=== PATIENT | male | born 1975 | race Caucasian/White ===

== ENCOUNTER 2024-04-20 21:47 | Observation (INO) ==
--- NOTE | 2024-04-20 22:13 | Emergency Department Note ---
Impression & Plan Atypical chest pain, Abdominal pain, epigastric, Alcohol use ED Provider Note Provider: Sahil Kulkarni MD DATE OF SERVICE: 04/20/2024 CHIEF COMPLAINT: Epigastric pain and discomfort earlier HISTORY OF PRESENT ILLNESS: Patient is a 48-year-old gentleman presenting with alexandro reporting about an area of the onset of some pain and pressure in the mid upper abdomen and lower chest region while he was in the pool. Was throwing some folks in the pool and have been in for several hours in the heat and had had some grilled food as well as fair amount of alcohol this evening. [place] unwell and according to face was bit purple. She was bringing him in for evaluation when after about 25 minutes of this his symptoms resolved. Came here just to be sure nothing else was going on. Feels fine now. No nausea or vomiting at this time. No shortness of breath. No syncope. No significant trauma. Family history of heart disease in father. Patient reports prior cholecystectomy. Denies significant heartburn. PAST MEDICAL HISTORY: As noted above MEDICATIONS: None reported SOCIAL HISTORY: Smoker, , occasional alcohol PHYSICAL EXAM: GENERAL: alert and oriented in no acute distress on stretcher Head: normocephalic and atraumatic EYES: No injection, discharge or icterus. NECK: Trachea midline. ENT: Mucous membranes pink and moist. LUNGS: Airway patent. No retractions. Breath sounds clear with good air entry bilaterally. HEART: Regular rate and rhythm. No chest wall tenderness ABDOMEN: Soft and non-tender, without guarding or rebound. SKIN: Acyanotic, warm, dry, without rashes EXTREMITIES: Without swelling, tenderness or deformity NEUROLOGICAL: No focal deficits. No aphasia. No facial droop or slurred speech. Ambulatory. EK bpm normal sinus rhythm. No PVC or PAC. No acute ST segment elevation or depression with QTc of 455. CONTINUOUS CARDIAC MONITORING: was ordered and showed a heart rate of 80s-90s bpm in normal sinus rhythm 1 view chest x-ray per my interpretation: No evidence of pneumothorax or pneumonia. No free air to the diaphragm. Normal cardiac silhouette. Slight right interstitial prominence noted. No pulmonary edema appreciable. Patient's laboratory studies and imaging reviewed. Differential includes Cardiac ischemia, aortic dissection, pulmonary embolism, pneumothorax, pneumonia, pericarditis, myocarditis, esophageal rupture, GERD, cholecystitis, pancreatitis, musculoskeletal, as well as other pathologies. IMPRESSION/MEDICAL DECISION MAKING: Patient is distressed and asymptomatic now. Vitals reassuring. Prior cholecystectomy and benign abdomen exam. Doubt perforation. Doubt obstruction. Chest x-ray obtained as well as EKG and blood work sent. Given some Pepcid and Protonix as he has been drinking and had some epigastric discomfort in case this is more GI related. Lower suspicion for cardiac disease with reassuring EKG here. Troponin sent and normal. No significant leg swelling or travel history not hypoxic or tachycardic and doubt PE. Doubt dissection. Medical alcohol was sent as the patient does endorse fairly significant alcohol use. May be contributing somewhat to his discomfort earlier. Lipase was sent as well. Given the benign abdomen however do not feel we need abdominal imaging. Blood work here without significant anemia. Slight leukocytosis of 10.9 nonspecific but no other infectious symptoms reported. Normal platelet count. No evidence of acute renal dysfunction hepatitis pancreatitis or troponin elevation. Patient resting on reassessment and arousable. Alcohol level is elevated likely contributing. Shared decision making discussing risk and benefits, given the patient's concern with the severity initially earlier, we will repeat a delta second troponin to ensure no significant change although the patient is asymptomatic at this time. Repeat troponin returns 14 from 7 doubling about 2 hours. Patient still resting comfortably. Given a dose of aspirin. Discussed with patient and . Again somewhat concerning that while still normal his troponin is increased with this amount. Discussed further observation and discussed with the hospitalist patient's case. DIAGNOSIS: Atypical chest pain/epigastric pain, alcohol intoxication DISPOSITION: Evaluated by the hospitalist Patient was agreeable with this plan. Past Med/Surg History Problem List (Updated 04/21/24 @ 01:52 by Sahil Kulkarni M.D.) Alcohol use (Acute) Atypical chest pain (Acute) Abdominal pain, epigastric (Acute) Social History Smoking Status: Current every day smoker Tobacco Type: Cigarettes Feels Safe at Home: Yes Results & Data (ED) Vital Signs Vital Signs - 24 hr 04/20/24 21:51 04/20/24 22:10 04/20/24 22:10 Temperature 36.9 C Temperature Source Temporal Artery Scan Pulse Rate 98 H 89 Pulse Rate from SpO2 Sensor Respiratory Rate 18 Blood Pressure 133/85 Blood Pressure Mean 101 Pulse Oximetry 95 94 Oxygen Delivery Method Room Air Room Air Sepsis Recent Fever Within 48 Hours No Sepsis New/Unexplained Change in Mental Status N/A Sepsis Action Taken by Nursing No Action Required 04/20/24 23:00 Temperature Temperature Source Pulse Rate 84 Pulse Rate from SpO2 Sensor 83 Respiratory Rate 17 Blood Pressure 133/76 Blood Pressure Mean 95 Pulse Oximetry 95 Oxygen Delivery Method Room Air Sepsis Recent Fever Within 48 Hours Sepsis New/Unexplained Change in Mental Status Sepsis Action Taken by Nursing Laboratory Data 04/20/24 22:04 04/20/24 22:04 Lab Results 04/20/24 04/21/24 Range/Units 22:04 00:20 WBC 10.92 H (4.8-10.8) K/ul RBC 5.24 (4.70-6.10) M/uL Hgb 16.0 (14.0-18.0) g/dl Hct 46.2 (42.0-52.0) % MCV 88.2 (80.0-100.0) fL MCH 30.5 (25.0-34.0) pg MCHC 34.6 (32.0-36.0) g/dL RDW Std Deviation 41.5 (36.4-46.3) fL RDW Coeff of Karen 12.7 (11.5-14.5) % Plt Count 163 (130-400) K/uL MPV 10.0 (9.4-12.4) fL Immature Gran % (Auto) 0.5 % Neut % (Auto) 61.5 % Lymph % (Auto) 32.6 % [place] % (Auto) 3.8 % Eos % (Auto) 1.1 % Baso % (Auto) 0.5 % Neut # (Auto) 6.71 H (1.40-6.50) K/uL Lymph # (Auto) 3.56 H (1.20-3.40) K/uL [place] # (Auto) 0.42 (0.11-0.59) K/uL Eos # (Auto) 0.12 (0.00-0.50) K/uL Baso # (Auto) 0.05 (0.00-0.20) K/uL Immature Gran # (Auto) 0.06 (0.01-0.20) K/uL PT 9.8 (9.0-12.0) Seconds INR 0.9 (0.9-1.1) Sodium 140 (136-145) mmol/L Potassium 3.7 (3.5-5.1) mmol/L Chloride 106 (98-107) mmol/L Carbon Dioxide 21 (21-32) mmol/L Anion Gap 13 H (3-11) BUN 10 (6-23) mg/dl Creatinine 1.18 (0.6-1.4) mg/dl Est Cr Clr Drug Dosing 113.6 ml/min Est GFR ( Amer) 82.9 ml/min Est GFR (Non-Af Amer) 71.5 ml/min BUN/Creatinine Ratio 8.5 L (10-20) Glucose 136 H (70-99(Fasting)) mg/dl Calcium 8.5 L (8.6-10.3) mg/dl Total Bilirubin 0.5 (0.2-1.0) mg/dl AST 38 (13-39) U/L ALT 31 (7-52) U/L Alkaline Phosphatase 64 (34-104) U/L Troponin I High Sens 7.4 14.2 D (0-20) pg/ml Total Protein 6.7 (6.0-8.3) gm/dl Albumin 4.2 (3.4-5.0) gm/dl Globulin 2.5 (2.5-4.0) gm/dl Albumin/Globulin Ratio 1.7 (0.9-2) Lipase 32 (11-82) U/L Ethyl Alcohol mg/dL 241.4 H (<10.0) mg/dl Administered Medications Discontinued Medications Famotidine (Pepcid 20mg Iv Push) 20 mg in 5 mls @ 2.5 mls/min IV NOW STA Stop: 04/20/24 21:57 Last Admin: 04/20/24 22:32 Dose: 2.5 mls/min Documented By: Pantoprazole Sodium 80 mg/ (Dextrose) 120 mls @ 480 mls/hr IV ONE STA Stop: 04/20/24 22:10 Last Infusion: 04/20/24 22:53 Dose: Infused Documented By: Admin: 04/20/24 22:32 Dose: 480 mls/hr Documented By: Discharge Plan Visit Data Chief Complaint: Chest Pain Stated Complaint: CHEST PAIN ED Provider: Sahil Kulkarni Discharge Problem: Atypical chest pain, Abdominal pain, epigastric, Alcohol use Patient Disposition: Being Evaluated by Hospitalist Condition: Good Referrals Referrals: PCP,NO [Primary Care Provider] -
[2024-04-20 22:27] LABS: Basophils # (auto) 0.05 K/uL (0.00-0.20); Basophils % (auto) 0.5 %; Eosinophils # (auto) 0.12 K/uL (0.00-0.50); Eosinophils % (auto) 1.1 %; Hematocrit (blood only) 46.2 % (42.0-52.0); Immature Granulocytes # (auto) 0.06 K/uL (0.01-0.20); Immature Granulocytes % (auto) 0.5 %; Lymphocytes # (auto) 3.56 K/uL (1.20-3.40); Lymphocytes % (auto) 32.6 %; Mean Corpuscular Hemoglobin 30.5 pg (25.0-34.0); Mean Corpuscular Hgb Conc 34.6 g/dL (32.0-36.0); Mean Corpuscular Volume 88.2 fL (80.0-100.0); Monocytes # (auto) 0.42 K/uL (0.11-0.59); Monocytes % (auto) 3.8 %; Neutrophils # (auto) 6.71 K/uL (1.40-6.50); Neutrophils % (auto) 61.5 %; Platelet Count 163 K/uL (130-400); RDW Coefficient of Variation 12.7 % (11.5-14.5); RDW Standard Deviation 41.5 fL (36.4-46.3); Red Blood Count 5.24 M/uL (4.70-6.10); White Blood Count 10.92 K/ul (4.8-10.8)
[2024-04-20] MEDS: PANTOprazole 80 MG in DEXTROSE 5% 100 ML IV STA (22:32)
[2024-04-20] MEDS: FAMOTIDINE 20MG IV PUSH 20 MG/5 ML SYR IV STA (22:32)
[2024-04-20 23:23] LABS: Albumin Globulin Ratio 1.7 (0.9-2); Albumin Level 4.2 gm/dl (3.4-5.0); BUN Creatinine Ratio 8.5 (10-20); Bilirubin,Total 0.5 mg/dl (0.2-1.0); Calcium 8.5 mg/dl (8.6-10.3); Creatinine Clr Calc Pharmacy 113.6 ml/min; Est GFR (African American) 82.9 ml/min; Est GFR (Non-African American) 71.5 ml/min; Globulin 2.5 gm/dl (2.5-4.0); Potassium 3.7 mmol/L (3.5-5.1); Total Protein 6.7 gm/dl (6.0-8.3)
[2024-04-20 23:30] LABS: Troponin I High Sensitivity 7.4 pg/ml (0-20)
[2024-04-20 23:45] LABS: INR 0.9 (0.9-1.1); Prothrombin Time 9.8 Seconds (9.0-12.0)
[2024-04-21] MEDS: ASPIRIN 81 MG CHEW PO STA (02:01)
--- NOTE | 2024-04-21 02:18 | History & Physical Report ---
Date of Service April 21, 2024 Assessment & Plan (1) Atypical chest pain: Plan: 48yo male presenting after episode of chest discomfort. EKG with no acute ischemic changes. Troponin WNL, however, has doubled on repeat (7.4--> 14.2) Patient with BMI=37. He is an active smoker. His father from an [place] in November 2023. Patient does not follow routinely with a physician. He is active and independent. Denies exertional chest pain or dyspnea. -Observation to medical with telemetry -Trend troponin to peak -Check Lipid panel and HgbA1C for risk stratification -Check 2D echo -Will provide nicotine patch -Smoking cessation counseling -Patient should establish with a PCP. He lives in [place] History of Present Illness Chief Complaint: chest pain Primary Care Provider: NO PCP Antoin Cano is a 48yo male with no known past medical history presenting with episode of chest discomfort. Patient was at a family democrat this evening. He was throwing people into the pool when he developed some epigastric and upper abdominal chest discomfort. His reports that he became diaphoretic and almost cyanotic appearing. Patient does not recall the events. He had been drinking throughout the day and is intoxicated. Presently with no complaints. Reports that he no longer has chest discomfort. No shortness of breath. No additional complaints - specifically no fever, chills, abdominal pain, nausea, vomiting or diarrhea. In the ER he is afebrile, HD stable Troponin as above WNL, however, doubled on repeat from 7.4 --> 14.2 ER Course: ASA 324mg po Protonix Pepcid Allergies Allergy/AdvReac Type Severity Reaction Status Date / Time Penicillins Allergy Rash Verified 04/21/24 01:47 Home Medications Medication Instructions Recorded Confirmed Type aspirin 81 mg tablet,delayed 162 mg PO DAILY PRN Pain 04/21/24 04/21/24 History release Past Med/Surg History Problem List (Updated 04/21/24 @ 02:12 by Taylor Oropeza DO) Alcohol use (Acute) Atypical chest pain (Acute) Abdominal pain, epigastric (Acute) Medical History (Updated 04/21/24 @ 02:12 by Taylor Oropeza DO) No significant past medical history Surgical History (Updated 04/21/24 @ 02:12 by Taylor Oropeza DO) History of cholecystectomy Family History (Updated 04/21/24 @ 02:12 by Taylor Oropeza DO) Other Coronary heart disease Social History Smoking Status: Current every day smoker Tobacco Type: Cigarettes Feels Safe at Home: Yes Review of Systems Review of Systems: All systems reviewed & are unremarkable except as noted in HPI & below Physical Exam Physical Exam: General: patient resting comfortably, NAD, non-toxic in appearance, AA&O x 4 Skin: warm, dry, intact, no rashes or lesions HEENT: NC/AT, PERRL, EOMI, anicteric sclera, conjunctiva without injection, external ear normal to inspection and nontender, nares patent, moist mucus membranes, dentition intact, no oropharyngeal lesions, neck supple, trachea midline, no LAD, no thyromegaly, no JVD Heart: +S1/S2, regular, no m/r/g Lungs: equal air entry bilaterally, no rales/rhonchi/wheezes Abd: +BS, soft, NT/ND, no masses/organomegaly/ascites Ext: warm, 2+ pulses in UE/LE bilaterally, no clubbing/cyanosis or edema Neuro: nonfocal, patient AA&O x 4, speech intact, no facial droop, moving all extremities on command with equal strength 5/5 Results & Data Results & Data Vital Signs (Past 12 Hours) Vital Signs Temp Pulse Resp BP Pulse Ox O2 Del Method 04/21/24 02:06 78 04/21/24 01:30 141/98 H 04/21/24 01:30 73 18 141/98 H 95 Room Air 04/21/24 01:00 118/72 04/21/24 01:00 78 17 118/72 93 Room Air 04/20/24 23:30 87 18 120/73 95 Room Air 04/20/24 23:00 84 17 133/76 95 Room Air 04/20/24 22:10 89 04/20/24 22:10 94 Room Air 04/20/24 21:51 36.9 C 98 H 18 133/85 95 Room Air Laboratory Results Laboratory Results WBC 10.92 K/ul (4.8-10.8) H 04/20/24 22:04 RBC 5.24 M/uL (4.70-6.10) 04/20/24 22:04 Hgb 16.0 g/dl (14.0-18.0) 04/20/24 22:04 Hct 46.2 % (42.0-52.0) 04/20/24 22:04 MCV 88.2 fL (80.0-100.0) 04/20/24 22:04 MCH 30.5 pg (25.0-34.0) 04/20/24 22:04 MCHC 34.6 g/dL (32.0-36.0) 04/20/24 22:04 RDW Std Deviation 41.5 fL (36.4-46.3) 04/20/24 22:04 RDW Coeff of Karen 12.7 % (11.5-14.5) 04/20/24 22:04 Plt Count 163 K/uL (130-400) 04/20/24 22:04 MPV 10.0 fL (9.4-12.4) 04/20/24 22:04 Immature Gran % (Auto) 0.5 % 04/20/24 22:04 Neut % (Auto) 61.5 % 04/20/24 22:04 Lymph % (Auto) 32.6 % 04/20/24 22:04 [place] % (Auto) 3.8 % 04/20/24 22:04 Eos % (Auto) 1.1 % 04/20/24 22:04 Baso % (Auto) 0.5 % 04/20/24 22:04 Neut # (Auto) 6.71 K/uL (1.40-6.50) H 04/20/24 22:04 Lymph # (Auto) 3.56 K/uL (1.20-3.40) H 04/20/24 22:04 [place] # (Auto) 0.42 K/uL (0.11-0.59) 04/20/24 22:04 Eos # (Auto) 0.12 K/uL (0.00-0.50) 04/20/24 22:04 Baso # (Auto) 0.05 K/uL (0.00-0.20) 04/20/24 22:04 Immature Gran # (Auto) 0.06 K/uL (0.01-0.20) 04/20/24 22:04 PT 9.8 Seconds (9.0-12.0) 04/20/24 22:04 INR 0.9 (0.9-1.1) 04/20/24 22:04 Sodium 140 mmol/L (136-145) 04/20/24 22:04 Potassium 3.7 mmol/L (3.5-5.1) 04/20/24 22:04 Chloride 106 mmol/L (98-107) 04/20/24 22:04 Carbon Dioxide 21 mmol/L (21-32) 04/20/24 22:04 Anion Gap 13 (3-11) H 04/20/24 22:04 BUN 10 mg/dl (6-23) 04/20/24 22:04 Creatinine 1.18 mg/dl (0.6-1.4) 04/20/24 22:04 Est Cr Clr Drug Dosing 113.6 ml/min 04/20/24 22:04 Est GFR ( Amer) 82.9 ml/min 04/20/24 22:04 Est GFR (Non-Af Amer) 71.5 ml/min 04/20/24 22:04 BUN/Creatinine Ratio 8.5 (10-20) L 04/20/24 22:04 Glucose 136 mg/dl (70-99(Fasting)) H 04/20/24 22:04 Calcium 8.5 mg/dl (8.6-10.3) L 04/20/24 22:04 Total Bilirubin 0.5 mg/dl (0.2-1.0) 04/20/24 22:04 AST 38 U/L (13-39) 04/20/24 22:04 ALT 31 U/L (7-52) 04/20/24 22:04 Alkaline Phosphatase 64 U/L (34-104) 04/20/24 22:04 Troponin I High Sens 14.2 pg/ml (0-20) D 04/21/24 00:20 Total Protein 6.7 gm/dl (6.0-8.3) 04/20/24 22:04 Albumin 4.2 gm/dl (3.4-5.0) 04/20/24 22:04 Globulin 2.5 gm/dl (2.5-4.0) 04/20/24 22:04 Albumin/Globulin Ratio 1.7 (0.9-2) 04/20/24 22:04 Lipase 32 U/L (11-82) 04/20/24 22:04 Ethyl Alcohol mg/dL 241.4 mg/dl (<10.0) H 04/20/24 22:04 Diagnostic Findings CXR wtih possible RLL infiltrate ECG Additional Comments: EKG with no acute ischemic changes PG Care Time/CCT Total # of Minutes Spent Total Time Spent with Patient: Total time spent is greater than 50% in coordination of care (as documented) at patient's floor/unit and/or counseling patient: Coding Level of Care Code 34038 INT INP/OBS CARE 2/55MIN Diagnoses Atypical chest pain R07.89
[2024-04-21] MEDS: NICOTINE 21 MG/24 HR TDSY TD STA (02:43)
[2024-04-21] MEDS ORDERED: ONDANSETRON INJ 2 MG/ML 2 ML VIAL IV PRN (04:54)
[2024-04-21] MEDS ORDERED: ACETAMINOPHEN 325 MG TAB PO PRN (04:54)
[2024-04-21 06:06] LABS: Magnesium 2.1 mg/dl (1.7-2.4)
[2024-04-21 06:13] LABS: Troponin I High Sensitivity 9.9 pg/ml (0-20)
--- NOTE | 2024-04-21 08:41 | XRay Report ---
XR chest 1V portable HISTORY: Chest pain, nonspecific COMPARISON: None. FINDINGS: No pneumothorax. No pleural effusions. There is a moderate hiatus hernia. The heart is mild ly enlarged. This may be accentuated by the low lung volumes. There are bibasilar linear densities. T he upper lung zones are clear. No evidence for pulmonary edema. No acute fractures. IMPRESSION: 1. Low lung volumes with bibasilar linear densities. This favors subsegmental atelectasis. 2. Retrocardiac density suggestive of a moderate hiatus hernia. ACT 112: Negative or not required by law. Electronically signed by: Jake Malik M.D. 04/21/2024 8:40 AM
[2024-04-21] MEDS ORDERED: NICOTINE 21 MG/24 HR TDSY TD SCH (09:00)
[2024-04-21] MEDS: NICOTINE 21 MG/24 HR TDSY TD ONE (09:15)
[2024-04-21] MEDS: NICOTINE 21 MG/24 HR TDSY TD SCH (09:16)
--- NOTE | 2024-04-21 12:57 | Electrocardiogram Report ---
Test Reason : Blood Pressure : / mmHG Vent. Rate : 094 BPM Atrial Rate : 094 BPM P-R Int : 194 ms QRS Dur : 092 ms QT Int : 364 ms P-R-T Axes : 048 062 051 degrees QTc Int : 455 ms Normal sinus rhythm Possible Left atrial enlargement Borderline ECG No previous ECGs available Confirmed by Romaine Montero ([id number]) on 04/21/2024 12:57:26 PM Referred By: REFERRED SELF Confirmed By:Romaine Montero
--- NOTE | 2024-04-21 13:39 | Discharge Summary ---
Discharge Summary Date of Service April 21, 2024 Principal Dx & Hospital Course #1 = Principal Diagnosis (1) Atypical chest pain: 48yo male presenting after episode of chest discomfort. EKG with no acute ischemic changes. Troponin WNL, however, has doubled on repeat (7.4--> 14.2) Patient with BMI=37. He is an active smoker. His father from an [place] in November 2023. Patient does not follow routinely with a physician. He is active and inde pendent. Denies exertional chest pain or dyspnea. Troponins are 7-14-9. Reviewed telemetry without arrhythmia Reviewed echocardiogram with cardiology no significant changes Preserved ejection fraction no regional wall motion abnormalities HgbA1C for risk stratification will be performed after discharge -Patient had lifestyle modification counseling with the presence of his . This was in the context of some recent hypertension. 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 He does not typically use significant alcohol. -Smoking cessation counseling Recommend taking baby aspirin a day will schedule an outpatient stress test Will follow-up as an outpatient with cardiology and get a PCP. Admission HPI Per Admitting Provider Antoni Cano is a 48yo male with no known past medical history presenting with episode of chest discomfort. Patient was at a family green party this evening. He was throwing people into the pool when he developed some epigastric and upper abdominal chest discomfort. His reports that he became diaphoretic and almost cyanotic appearing. Patient does not recall the events. He had been drinking throughout the day and is intoxicated. Presently with no complaints. Reports that he no longer has chest discomfort. No shortness of breath. No additional complaints - specifically no fever, chills, abdominal pain, nausea, vomiting or diarrhea. In the ER he is afebrile, HD stable Troponin as above WNL, however, doubled on repeat from 7.4 --> 14.2 ER Course: ASA 324mg po Protonix Pepcid Discharge Exam Awake alert appropriate no physical complaints Card exam is regular that murmur Lung exam is clear Updated Medication List Medication Instructions Recorded Confirmed Type aspirin 81 mg tablet,delayed 81 mg PO DAILY Pain #30 tabs 04/21/24 04/21/24 Rx release Hospital Stay Data Consultations 04/21/24 01:52 ED Decision to Admit Stat Pending Results Patient Have Any Pending Studies at Discharge: No Discharge Instructions Given to Patient (Per Discharging Provider) please follow up with your primary care you will be contacted by our scheduling department to have an outpatient stress test please try to limit your salt intake and reduce or eliminate your caffeine and any alcohol intake to help improve your blood pressure although you do drive for your occupation, try to insert 30 minutes of walking daily once you have completed your stress test and have a follow up from your doctor or a distribution tech Total Time Total Time Spent Total Time Spent (In Minutes): It required greater than 30 minutes to prepare this patient for discharge. Coding Level of Care Code 74229 INP/OBS DISCH >30 MIN Diagnoses Atypical chest pain R07.89
--- NOTE | 2024-04-21 17:17 | XCELERA ---
[id number]
== END 2024-04-21 13:29 | disposition home or self-care (01) ==
LOC: SUATTDRO → ED 21:47 → EDINP 21:47 → SUATTDRO 04-21 02:07 → EDINP 04-21 04:54